=== PATIENT | female | born 1990 | race Caucasian/White ===

== ENCOUNTER 2017-03-13 21:36 | Emergency (ER) | payer MEDICAID, OTHER ==
[2017-03-13 21:43] VITALS: BP 108/60
--- NOTE | 2017-03-13 22:00 | UC ---
Aubrie Montano Abhishek, scribed for Dejon Cardona MD on 03/13/17 at 2149 . Respiratory Complaint HPI - HPI Summary HPI Summary: Pt is a 26 y/o F who presents to ED c/o throat pain, fatigue, rhinorrhea, and head pressure. Sx have been present for the last 3 days, gradually worsening, at its worst today. States that she slept 14 hours last night. Sx aggravated by recent emotional trauma and alleviated by nothing. Additionally c/o chills, subjective fever, dizziness, ear pressure, wheezing and SOB. Pt reports that after laying down or falling asleep she'll get up "feeling totally constricted" which requires her rescue inhaler which is running out. PMHx asthma. Reports that when she gets colds, her asthma gets worse which si typically treated with Advair. Has used Prednisone before. States that she gets ill frequently, though she typically does not experiencing such fatigue. - History of Current Complaint Chief Complaint: UCRespiratory Stated Complaint: COLD COMPLAINT Time Seen by Provider: 03/13/17 21:37 Hx Obtained From: Patient Hx Last Menstrual Period: 02/12/17 Onset/Duration: Lasting Days - 3 days, Still Present, Worse Since - Today Severity Currently: None Pain Intensity: 0 Pain Scale Used: 0-10 Numeric Aggravating Factors: Other - Emotional trauma Alleviating Factors: Nothing Associated Signs And Symptoms: Positive: Fever, Chills, Dizziness - Allergies/Home Medications Allergies/Adverse Reactions: Allergies Allergy/AdvReac Type Severity Reaction Status Date / Time Amoxicillin [From Augmentin] Allergy Vomiting Verified 03/13/17 21:39 Clavulanic Acid Allergy Vomiting Verified 03/13/17 21:39 [From Augmentin] Home Medications: Home Medications buPROPion TAB* [Wellbutrin TAB*] 450 mg PO DAILY 03/13/17 [History Confirmed 02/19] PMH/Surg Hx/FS Hx/Imm Hx - Additional Past Medical History Additional PMH: NEGATIVE: HTN, CAD Respiratory History: Asthma Cancer History: Other Other Cancer History: Melanoma - Surgical History Surgical History: None - Family History Known Family History: Positive: Other - Melanoma, Crohn's - Social History Alcohol Use: None Substance Use Type: None Smoking Status (MU): Never Smoked Tobacco Review of Systems Constitutional: Fever, Chills, Fatigue Skin: Negative Eyes: Negative ENT: Sore Throat, Nasal Discharge, Other - Head pressure, ear pressure Respiratory: Shortness Of Breath, Other - Wheezing Cardiovascular: Negative Gastrointestinal: Negative Genitourinary: Negative Motor: Negative Neurovascular: Negative Musculoskeletal: Negative Neurological: Other - Dizziness Psychological: Negative All Other Systems Reviewed And Are Negative: Yes Physical Exam Triage Information Reviewed: Yes Vital Signs: Initial Vital Signs Temp 99.4 F 03/13/17 21:41 Pulse 72 03/13/17 21:41 Resp 16 03/13/17 21:41 BP 108/60 03/13/17 21:41 Pulse Ox 99 03/13/17 21:41 Vital Signs Reviewed: Yes - Additional Comments General: mildly ill-appearing, no pain distress Skin: warm, color reflects adequate perfusion, dry Head: normal Eyes: EOMI, MANSOOR ENT: positive rhinorrhea, posterior cervical adenopathy, posterior pharynx has mild erythema Neck: supple, nontender Respiratory: CTA, breath sounds present, no respiratory distress Cardiovascular: RRR Abdomen: soft, nontender Bowel: present Musculoskeletal: normal, strength/ROM intact Neurological: normal, sensory/motor intact, A&O x3 Psychological: affect/mood appropriate Diagnostic Evaluation - Laboratory O2 Sat by Pulse Oximetry: 99 Respiratory Course/Dx - Course Course Of Treatment: Allergies ntoed. Pt medications reviewed. DISCUSSED ABX RX. PATIENT DECLINED AT THIS TIME. - Differential Dx/Diagnosis Provider Diagnoses: UPPER RESPIRATORY TRACT INFECTION WITH ASTHMA EXACERBATION Discharge - Discharge Plan Condition: Stable Disposition: HOME Prescriptions: Albuterol Sulfate [Proventil Hfa] 108 mcg IN Q4HR PRN #1 inhaler PRN Reason: Dyspnea Fluticasone-Salmeterol 250-50* [Advair Diskus 250-50*] 1 puff INH BID #1 diskus Patient Education Materials: Asthma (ED), Upper Respiratory Infection (ED) Referrals: [facility] [place] [facility] [Outside] Salvador Cisneros PA [Primary Care Provider] - Additional Instructions: FOLLOW UP WITH YOUR DOCTOR. GET RECHECKED FOR ANY WORSENING OF YOUR CONDITION OR QUESTIONS OR CONCERNS. The documentation as recorded by the Aubrie hall Abhishek accurately reflects the service I personally performed and the decisions made by , Dejon Cardona MD.
== END 2017-03-13 21:57 | disposition home or self-care (01) ==
LOC: UCEAST 21:36
DX: J06.9 Acute upper respiratory infection, unspecified (principal); J45.901 Unspecified asthma with (acute) exacerbation
CPT/HCPCS: 99212; G0463

== ENCOUNTER 2017-04-05 16:59 | Emergency (ER) | payer OTHER ==
[2017-04-05 19:47] LABS: Urine Bacteria 1+ (Absent); Urine Bilirubin Negative (Negative); Urine Glucose Negative (Negative); Urine Nitrite Negative (Negative)
[2017-04-05] MEDS ORDERED: Cephalexin CAP* 500 MG PO ONE (19:52)
[2017-04-05 20:34] LABS: Anion Gap 5 mmol/L (2-11); BUN/Creatinine Ratio 11.7 (8-20); Blood Urea Nitrogen 7 mg/dL (6-24); CO2 Carbon Dioxide 29 mmol/L (22-32); Calcium 9.3 mg/dL (8.6-10.3); Chloride 103 mmol/L (101-111); EGFR African American 156.7 (>60); EGFR Non-African American 121.8 (>60); Glucose 92 mg/dL (70-100); Potassium 3.6 mmol/L (3.5-5.0); Sodium 137 mmol/L (133-145)
--- NOTE | 2017-04-05 20:51 | ED ---
Sohail Montano Angela, scribed for Martín Jones MD on 04/05/17 at 1848 . GI/ HPI - HPI Summary HPI Summary: This pt is a 26 y/o female presenting to [facility] c/o inability to void for the past 24 years. She states that every time she tries to urinate there " is a small trickle." Pt reports some lower abd pain associated. She states she stands in the shower and it alleviates her pain. Pt notes her bladder feels full. Pt reports this has happened to her before when she was 22 y/o and was under stress. Pt was straight catheterized and had relief. She states having recent stress lately, having 2 friends pass away in the past week. She denies weakness or numbness in LE, fever, back pain, trouble walking. Pt has had a UTI before ("years ago"). PMHx: asthma. - History of Current Complaint Chief Complaint: EDUrogenitalProblems Stated Complaint: UNABLE TO URINATE Hx Obtained From: Patient Hx Last Menstrual Period: 02/12/17 Onset/Duration: Started Hours Ago - 24, Still Present Timing: Lasting Hours - 24 Pain Intensity: 0 Location of Pain: Other - lower abd pain Pain Characteristics: Other: - full bladder Associated Signs and Symptoms: Negative: Back Pain, Fever, Other: - weakness, numbness in LE, trouble walking Alleviating Factor(s): Nothing - Allergy/Home Medications Allergies/Adverse Reactions: Allergies Allergy/AdvReac Type Severity Reaction Status Date / Time Amoxicillin [From Augmentin] Allergy Vomiting Verified 03/13/17 21:39 Clavulanic Acid Allergy Vomiting Verified 03/13/17 21:39 [From Augmentin] PMH/Surg Hx/FS Hx/Imm Hx Endocrine/Hematology History: Denies: Hx Diabetes Cardiovascular History: Denies: Hx Hypertension Respiratory History: Reports: Hx Asthma Infectious Disease History: No Infectious Disease History: Denies: Hx Clostridium Difficile, Hx Hepatitis, Hx Human Immunodeficiency Virus (HIV), Hx of Known/Suspected MRSA, Hx Shingles, Hx Tuberculosis, Hx Known/ Suspected VRE, Hx Known/Suspected VRSA, History Other Infectious Disease, Traveled Outside the [place] in Last 30 Days - Family History Known Family History: Positive: Other - Melanoma, Crohn's - Social History Alcohol Use: None Substance Use Type: Reports: None Smoking Status (MU): Light Every Day Tobacco Smoker Review of Systems Negative: Fever, Chills, Other - trouble walking Positive: Other - abd discomfort Positive: other - full bladder, anuria Negative: Other - back pain Negative: Weakness, Numbness Psychological: Other - recent stress All Other Systems Reviewed And Are Negative: Yes Physical Exam - Summary Physical Exam Summary: Appearance: Well-appearing, Well-nourished Skin: Warm. No skin changes. Eyes: Normal ENT: Normal Neck: Supple, nontender Respiratory: Clear to auscultation Cardiovascular: Normal Abdomen: Soft. There is mild lower abdominal tenderness. No CVA tenderness. Bowel: Present Musculoskeletal: Normal, Strength/ROM Intact. No back tenderness. Neurological: Normal, A&Ox3. No weakness in LE. No saddle anesthesia Psychiatric: Normal Triage Information Reviewed: Yes Vital Signs On Initial Exam: Initial Vitals Temp Pulse Resp BP Pulse Ox 98.1 F 108 18 113/75 98 04/05/17 17:00 04/05/17 17:00 04/05/17 17:00 04/05/17 17:00 04/05/17 17:00 Vital Signs Reviewed: Yes - Arturo Coma Scale Coma Scale Total: 15 Diagnostics - Vital Signs Vital Signs Temp Pulse Resp BP Pulse Ox 04/05/17 17:00 98.1 F 108 18 113/75 98 - Laboratory Lab Results: Lab Results 04/05/17 04/05/17 Range/Units 18:52 20:05 Sodium 137 (133-145) mmol/L Potassium 3.6 (3.5-5.0) mmol/L Chloride 103 (101-111) mmol/L Carbon Dioxide 29 (22-32) mmol/L Anion Gap 5 (2-11) mmol/L BUN 7 (6-24) mg/dL Creatinine 0.60 (0.51-0.95) mg/dL Est GFR ( Amer) 156.7 (>60) Est GFR (Non-Af Amer) 121.8 (>60) BUN/Creatinine Ratio 11.7 (8-20) Glucose 92 (70-100) mg/dL Calcium 9.3 (8.6-10.3) mg/dL Beta HCG, Quant < 0.60 mIU/mL Urine Color Yellow Urine Appearance Cloudy Urine pH 7.0 (5-9) Ur Specific Newell 1.015 (1.010-1.030) Urine Protein Negative (Negative) Urine Ketones Trace H (Negative) Urine Blood Negative (Negative) Urine Nitrate Negative (Negative) Urine Bilirubin Negative (Negative) Urine Urobilinogen Negative (Negative) Ur Leukocyte Esterase 2+ H (Negative) Urine WBC (Auto) 1+(6-10/hpf) H (Absent) Urine RBC (Auto) 1+(3-5/hpf) H (Absent) Ur Squamous Epith Cells Present H (Absent) Amorphous Crystals Present H (Absent) Urine Bacteria 1+ H (Absent) Urine Glucose Negative (Negative) Result Diagrams: 04/05/17 20:05 Lab Statement: Any lab studies that have been ordered have been reviewed, and results considered in the medical decision making process. GIGU Course/Dx - Course Assessment/Plan: started on abx, minimal pvr based on output from cath, instructed to fu with pmd. agrees to adn understands dc instructions - Diagnoses Provider Diagnoses: UTI (urinary tract infection) Discharge - Discharge Plan Condition: Improved Disposition: HOME Prescriptions: Cephalexin CAP* [Keflex CAP*] 500 mg PO BID #10 cap Patient Education Materials: Dysuria (ED), Urinary Tract Infection in Women (ED ) Additional Instructions: PLEASE MAKE AN APPOINTMENT FIRST THING IN THE MORNING TO BE SEEN BY A PRIMARY CARE PHYSICIAN WITHIN 1 WEEK PLEASE RETURN TO THE EMERGENCY ROOM IF YOU HAVE ANY WORSENING OR CONCERNING SYMPTOMS The documentation as recorded by the Sohail hall Angela accurately reflects the service I personally performed and the decisions made by me, Martín Jones MD.
[2017-04-05 21:29] VITALS: BP 124/69
== END 2017-04-05 21:28 | disposition home or self-care (01) ==
LOC: ED 16:59
DX: N39.0 Urinary tract infection, site not specified (principal); F17.210 Nicotine dependence, cigarettes, uncomplicated
CPT/HCPCS: 36415; 80048; 81003; 81015; 84702; 87086; 99283; A9270-GY